=== PATIENT | male | born 1995 | race Caucasian/White ===

== ENCOUNTER 2017-01-21 10:27 | Day surgery (SDC) | payer OTHER ==
--- NOTE | 2017-01-21 12:25 | Operative Note ---
Colonoscopy (Alessandra) Procedure date: 01/21/17 Date of : [birth year] Procedure:Colonoscopy Colonoscopy with hemorrhoid band ligation Indications: Mr. Butler is a 21-year-old gentleman with intermittent bright red rectal bleeding both in the toilet and told tissue. This has been going on intermittently for 5 years. He does have some intermittent abdominal pain that accompanies the bleeding. He does state that his maternal uncle had Crohn's disease. He does have some intermittent diarrhea. He reports no anorectal pain or weight loss. He reports no family history of colon cancer. He has not had a prior colonoscopy. 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 His complete blood count and chemistries were recently normal. His hemoglobin was borderline at 13.8. He did have a sedimentation rate of 23. His CT scan of the abdomen and pelvis on November 30, 2016 showed low-density changes in the LEFT hepatic lobe with atrophy of the lateral segment of the LEFT hepatic lobe secondary to focal fatty infiltration and some scarring. The patient has not had subsequent MRI. Performing Provider: Benjamin Aparicio MD Referrring Provider: Shawn Perez M.D. Sedation: Fentanyl 100 mg IV/Versed 7 mg IV Procedure: Prior to the procedure, a history and physical exam was performed, and patient medications and allergies were reviewed. The risks and benefits of the procedure and the sedation options and risks were discussed with the patient. All questions were answered and informed consent was obtained. Patient identification and proposed procedure were verified by the physician and the nurse. The patient was placed in a left lateral decubitus position. Throughout the procedure, the patient's blood pressure, pulse, and oxygen saturations were monitored continuously. Findings: On digital rectal examination there was normal rectal tone. There were no external hemorrhoids. The colonoscope was introduced through the anal canal to the rectum and advanced to the cecum. The ileocecal valve and appendiceal orifice were identified. The scope was advanced a short distance into the ileum which appeared grossly normal. The scope was then withdrawn into the colon. The cecum, ascending, transverse, descending, sigmoid and rectum were grossly normal. There were no mucosal abnormalities identified. Upon retroflexion within the rectum there were grade 1-2 internal hemorrhoids. The hemorrhoids were banded using 3 bands with excellent ligation effect. Impressions: 1. Normal colonoscopy with intubation of the terminal ileum 2. Grade 1-2 internal hemorrhoids status post band ligation 3 Recommendations: I am going to encourage fiber bulk supplementation and probiotic therapy on a long-term daily and maintenance basis. Complications: None EBL (ml): 0 at 1223
[2017-01-21 15:04] VITALS: BP 117/64
== END 2017-01-21 13:10 | disposition home or self-care (01) ==
LOC: SDC 10:27
PROVIDERS: Internal Medicine Gastroenterology
PROC: 06LY4CC Occlusion of Hemorrhoidal Plexus with Extraluminal Device, Percutaneous Endoscopic Approach (ICD-10-PCS; principal; 2017-01-21 11:30)
DX: K62.5 Hemorrhage of anus and rectum (principal); K64.1 Second degree hemorrhoids

== ENCOUNTER → 2017-04-29 | Outpatient (CLI) | payer OTHER ==
--- NOTE | 2017-05-05 11:56 | RADIOLOGY REPORT PS360 ---
MRI-ABD W/WO CLINICAL INDICATION: Hepatic tumor, follow-up abnormal CT scan LOW TESTOSTERONE IN MALE ORDERING PHYSICIAN: Louis Perez MD PATIENT AGE: 21 years COMPARISON: 12/10/2016 CT scan FINDINGS: As mentioned in the CT scan report, the left lobe of the liver is small and atrophic appearing. There is a 5 x 3.4 cm area of heterogeneous signal intensity involving the lateral segment of the left lobe of the liver lateral to the falciform ligament region superiorly indicating segment 2. This is mostly isointense on the preenhanced images with some central area decreased T1 signal. This shows some mild arterial heterogeneous enhancement peripherally with persistent decreased signal centrally on the post enhanced images there does appear to be some equilibrium on the 5 minute delayed images. The enhancement is not as intense as one was would expect for a hemangioma. This may represent focal nodular hyperplasia. Any old studies that the patient may have is recommended to be submitted for comparison and an addendum may be given. If there are no old exams for comparison then, would recommend a short-term 3 month follow-up without and with contrast. No other hepatic lesions are evident. The spleen, adrenal glands, pancreas, and kidneys have an unremarkable appearance. IMPRESSION: 5 x 3.4 cm complex lesion of the left lobe of the liver in segment 2. The left lobe is atrophic. This may represent focal nodular hyperplasia. Short-term follow-up in 3 months recommended if no old studies are available for comparison. If old films are available then suggest submitting them for comparison. The lesion does not appear significantly changed compared to 11/30/2016 CT scan Attempts will be made to obtain any old films that may be available.
== END ==
LOC: RAD 10:17
DX: E29.1 Testicular hypofunction (principal)
CPT/HCPCS: A9576

== ENCOUNTER → 2017-05-14 | Outpatient (CLI) | payer OTHER ==
--- NOTE | 2017-05-14 13:29 | RADIOLOGY REPORT PS360 ---
SKULL- COMPLETE-4 OR>VIEWS HISTORY: SELLA TURCICA VIEWS, LOW TESTOSTERONE IN MALE ORDERING PHYSICIAN: Louis Perez MD PATIENT AGE: 22 years COMPARISON: None FINDINGS: Negative skull. No lytic or blastic lesions or fractures. The sella turcica has an unremarkable appearance. IMPRESSION: Negative skull. The sella turcica does not appear enlarged. MRI may be of further value if there is high clinical suspicion for the to [place] abnormality.
== END ==
LOC: RAD 12:32
DX: E29.1 Testicular hypofunction (principal)